=== PATIENT | male | born 1990 | race Caucasian/White ===

== ENCOUNTER 2019-06-21 22:11 | Inpatient (IN) | payer SELFPAY ==
[~2019-06-21] VITALS: Ht 167.6 cm; Wt 63.9 kg
[~2019-06-21 22:11] MED LIST: CEPH500C PO; HYDR1TAB PO; ONDA4TAB11 PO; PROP1TAB77 PO; SULF1TAB38 PO; TRAM50TA2 PO; tylenol #3
[2019-06-21] MEDS ORDERED: LACTATED RINGERS 1,000 ML IV ONE ×2 (22:25→23:33)
[2019-06-21] MEDS ORDERED: ONDANSETRON 4 MG/2 ML (SDV) Z0FRAN IV PRN (22:30)
[2019-06-21] MEDS ORDERED: ACETAMINOPHEN 500 MG TAB (TYLENOL) PO PRN (22:30)
[2019-06-21] MEDS ORDERED: IBUPROFEN 800 MG (MOTRIN) TAB PO ONE (22:30)
[2019-06-21 22:49] LABS: BASOPHILS % (AUTO) 0 % (0-10); EOSINOPHILS # (AUTO) 0.1 10^3/uL (0.0-0.3); EOSINOPHILS % (AUTO) 2 % (0-10); HEMATOCRIT 39 % (40-54); HEMOGLOBIN 13.4 G/DL (13.3-17.7); LYMPHOCYTES # (AUTO) 0.5 X 10^3 (1.0-4.0); LYMPHOCYTES % (AUTO) 7 % (12-44); MEAN CORPUSCULAR HEMOGLOBIN 30 PG (25-34); MEAN CORPUSCULAR HGB CONC 34 G/DL (32-36); MEAN CORPUSCULAR VOLUME 88 FL (80-99); MEAN PLATELET VOLUME 10.9 FL (7.4-10.4); MONOCYTES # (AUTO) 0.3 X 10^3 (0.0-1.0); MONOCYTES % (AUTO) 5 % (0-12); NEUTROPHILS # (AUTO) 6.3 X 10^3 (1.8-7.8); NEUTROPHILS % (AUTO) 86 % (42-75); PLATELET COUNT 203 10^3/uL (130-400); RED CELL DISTRIBUTION WIDTH 12.5 % (10.0-14.5); WHITE BLOOD COUNT 7.3 10^3/uL (4.3-11.0)
[2019-06-21 22:55] LABS: PROTHROMBIN TIME PATIENT 13.4 SEC (12.2-14.7)
[2019-06-21 23:05] LABS: ALANINE AMINOTRANSFERASE 31 U/L (0-55); ALBUMIN 3.5 GM/DL (3.2-4.5); ALKALINE PHOSPHATASE 81 U/L (40-136); AMYLASE 35 U/L (25-125); BILIRUBIN,TOTAL 0.6 MG/DL (0.1-1.0); BUN/CREATININE RATIO 10; CALCIUM 8.8 MG/DL (8.5-10.1); CARBON DIOXIDE 26 MMOL/L (21-32); CHLORIDE 96 MMOL/L (98-107); CREATININE SERUM 1.28 MG/DL (0.60-1.30); GFR ESTIMATED > 60; GLUCOSE 148 MG/DL (70-105); LIPASE 11 U/L (8-78); MAGNESIUM 1.8 MG/DL (1.6-2.4); POTASSIUM 3.2 MMOL/L (3.6-5.0); SODIUM 132 MMOL/L (135-145); TOTAL PROTEIN 6.6 GM/DL (6.4-8.2)
[2019-06-21 23:29] LABS: BAND NEUTROPHILS 1 %; EOSINOPHILS % (MANUAL) 1 %; LYMPHOCYTES % (MANUAL) 4 %; MONOCYTES % (MANUAL) 6 %; NEUTROPHILS % (MANUAL) 88 %; RBC MORPH NORMAL
[2019-06-21] MEDS ORDERED: AZITHROMYCIN INJECTION 500 MG in NS (IVPB) 250 ML IV ONE (23:30)
[2019-06-21] MEDS ORDERED: cefTRIAXone FOR IV USE 1,000 MG in WATER (STERILE) FOR INJECTION 10 ML IV ONE (23:30)
[2019-06-21] MEDS ORDERED: ONDANSETRON 4 MG (ZOFRAN) ORAL DISSOLVE TAB PO STA (23:42)
[2019-06-21 23:44] VITALS: BP 99/60
[2019-06-22] VITALS (16 sets, daily range): BP systolic 87–117; BP diastolic 53–73
[2019-06-22] MEDS ORDERED: NS IV 1000 ML 1,000 ML ONE (00:04)
[2019-06-22] MEDS ORDERED: NS IV 1000 ML 1,000 ML IV ONE ×2 (00:16→01:19)
[2019-06-22] MEDS ORDERED: methylPREDNISolone 125 MG (Solu-MEDROL) VIAL IVP ONE (00:30)
[2019-06-22] MEDS ORDERED: 1/2 NS W/KCL 20 MEQ/L 1,000 ML IV ONE (01:58)
[2019-06-22 02:04] LABS: BILIRUBIN,URINE NEGATIVE (NEGATIVE); CLARITY,URINE CLEAR; COLOR,URINE YELLOW; GLUCOSE, URINE (UA) NEGATIVE (NEGATIVE); KETONES,URINE NEGATIVE (NEGATIVE); LEUKOCYTE ESTERASE ,URINE NEGATIVE (NEGATIVE); NITRITE,URINE NEGATIVE (NEGATIVE); PH,URINE 6.5 (5-9); PROTEIN,URINE 2+ (NEGATIVE); UROBILINOGEN,URINE 4 MG/DL (NORMAL)
--- NOTE | 2019-06-22 02:12 | ED General ---
General Chief Complaint: Fever-Adult/Adol Stated Complaint: PNEUMONIA; SEPSIS Nursing Triage Note: Pt ambulates to [facility] 6 with C/O fever/chills, N/V, dizziness, and overall weakness x 3 days. Pt reports taking tylenol this am and did not help fever. Pt denies SOB at this time. Pt is A&O x 4. PT is weak/sluggish upon observation on arrival. Nursing Sepsis Screen: No Definite Risk Source of Information: Other (FEMALE S.O. DOES ALL TALKING--PT NOT WANTING TO TALK. ) History of Present Illness Date Seen by Provider: Jun 21, 2019 Time Seen by Provider: 22:20 Initial Comments PT ARRIVES VIA POV FROM HOME PT HAS BEEN SICK FOR THE LAST 3 DAYS C/O SUBJECTIVE FEVER--HAD 1 TYLENOL EARLY THIS AM. HAS NOT ANYTHING ELSE FOR SYMPTOMS . TEMP IS 103.8 NO ARRIVAL HERE C/O NAUSEA AND VOMITING--VOMITED X 2 TODAY NO DIARRHEA NO ABDOMINAL PAIN C/O BODY ACHES C/O HEADACHE C/O MILD NON-PRODUCTIVE COUGH AND CLEAR RUNNY NOSE NO CHEST PAIN OR SHORTNESS OF BREATH C/O GENERALIZED WEAKNESS AND DIZZINESS NO HISTORY OF SIMILAR DENIES ANY MEDICAL PROBLEMS PT DOES SMOKE 1 PPD NO SICK CONTACTS PCP: NONE Allergies and Home Medications Allergies Coded Allergies: NKANo Known Allergies (Unverified Allergy, Mild, 02/25/09) Home Medications Cephalexin Monohydrate 500 Mg Capsule, 1 EACH PO TID Prescribed by: ERWIN ALONZO on 07/17/13 230 Ondansetron 4 Mg Tab.rapdis, 4 MG PO Q6H PRN for NAUSEA/VOMITING Prescribed by: ROSA CRAFT on 02/03/15 0724 Tramadol Hcl 50 Mg Tablet, 50 MG PO Q4H PRN Prescribed by: ERWIN ALONZO on 07/17/13 230 Patient Home Medication List Home Medication List Reviewed: Yes Review of Systems Review of Systems Constitutional: see HPI, chills, diaphoresis, dizziness, fever, malaise, weakness EENTM: see HPI, nose congestion; No eye pain, No throat pain Respiratory: see HPI, cough; No phlegm, No short of breath, No wheezing Cardiovascular: no symptoms reported; No chest pain, No edema, No palpitations Gastrointestinal: see HPI; No abdominal pain, No diarrhea; loss of appetite, nausea, vomiting Genitourinary: decreased output Musculoskeletal: see HPI Skin: no symptoms reported; No rash Psychiatric/Neurological: See HPI, Headache; Denies Numbness, Denies Pares thesia, Denies Seizure, Denies Tingling Hematologic/Lymphatic: No Symptoms Reported Immunological/Allergic: no symptoms reported Past Twasfyr-Lqzkwb-Dwtcbc Hx Patient Social History Alcohol Use: Denies Use Recreational Drug Use: No Smoking Status: Current Everyday Smoker (1 PPD) Type Used: Cigarettes (1 PPD) Recent Foreign Travel: No Contact w/Someone Who Travel: No Recent Infectious Disease Expo: No Recent Hopitalizations: No Physical Abuse: No Sexual Abuse: No Mistreated: No Fear: No Immunizations Up To Date Tetanus Booster (TDap): More than 5yrs Seasonal Allergies Seasonal Allergies: No Past Medical History Surgeries: No Respiratory: No Cardiac: No Neurological: No Reproductive Disorders: No Sexually Transmitted Disease: No HIV/AIDS: No Genitourinary: No Gastrointestinal: No Musculoskeletal: No Endocrine: No HEENT: Yes (TEETH REMOVED) Cancer: No Psychosocial: No Integumentary: No Blood Disorders: No Adverse Reaction/Blood Tranf: No Physical Exam Vital Signs Vital Signs - First Documented 06/21/19 22:37 Temp 103.8 Pulse 102 Resp 18 B/P (MAP) 105/65 (78) Pulse Ox 97 O2 Delivery Room Air Capillary Refill : Less Than 3 Seconds Height, Weight, BMI Height: 5'6.00" Weight: 120lbs. oz. 54.219038nk; BMI Method:Stated General Appearance: No Apparent Distress, Thin, Other (VERY DRAMATIC, LETHARGIC, WON'T TALK--WANTS FEMALE S.O. TO TALK FOR HIM. DIRTY, REEKS OF CIGARETTES. PROFUSELY DIAPHORETIC BUT HEAVILY BUNDLED ON ARRIVAL) HEENT: PERRL/EOMI, TMs Normal, Normal ENT Inspection, Pharynx Normal, Other (EDENTULOUS. ORAL MUCOSA SLIGHTLY DRY) Neck: Full Range of Motion, Normal Inspection, Non Tender, Supple Respiratory: No Accessory Muscle Use, No Respiratory Distress, Rales, Rhonci; No Wheezing; Other (RALES AND RHONCHI IN RLL, FAINT RALES IN LLL. 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 Norm as Tested Skin: Diaphoresis, Pallor, Other (VERY WARM) Focused Exam Lactate Level 06/21/19 22:30: Lactic Acid Level 1.62 Lactic Acid Level Progress/Results/Core Measures Suspected Sepsis Recent Fever Within 48 Hours: Yes Infection Criteria Present: Suspected New Infection New/Unexplained Altered Menta: No Sepsis Screen: No Definite Risk SIRS Temperature:99.2 Pulse: 79 Respiratory Rate: 18 Laboratory Tests 06/21/19 22:30: White Blood Count 7.3 Blood Pressure 105 /70 Mean: 82 06/21/19 22:30: Lactic Acid Level 1.62 Laboratory Tests 06/21/19 22:30: Creatinine 1.28, INR Comment 1.0, Platelet Count 203, Total Bilirubin 0.6 Results/Orders Lab Results Laboratory Tests Test 06/21/19 22:30 06/21/19 22:56 06/22/19 01:45 Range/Units White Blood Count 7.3 4.3-11.0 10^3/uL Red Blood Count 4.49 4.35-5.85 10^6/uL Hemoglobin 13.4 13.3-17.7 G/DL Hematocrit 39 L 40-54 % Mean Corpuscular Volume 88 80-99 FL Mean Corpuscular Hemoglobin 30 25-34 PG Mean Corpuscular Hemoglobin Concent 34 32-36 G/DL Red Cell Distribution Width 12.5 10.0-14.5 % Platelet Count 203 130-400 10^3/uL Mean Platelet Volume 10.9 H 7.4-10.4 FL Neutrophils (%) (Auto) 86 H 42-75 % Lymphocytes (%) (Auto) 7 L 12-44 % Monocytes (%) (Auto) 5 0-12 % Eosinophils (%) (Auto) 2 0-10 % Basophils (%) (Auto) 0 0-10 % Neutrophils # (Auto) 6.3 1.8-7.8 X 10^3 Lymphocytes # (Auto) 0.5 L 1.0-4.0 X 10^3 Monocytes # (Auto) 0.3 0.0-1.0 X 10^3 Eosinophils # (Auto) 0.1 0.0-0.3 10^3/uL Basophils # (Auto) 0.0 0.0-0.1 10^3/uL Neutrophils % (Manual) 88 % Lymphocytes % (Manual) 4 % Monocytes % (Manual) 6 % Eosinophils % (Manual) 1 % Band Neutrophils 1 % Blood Morphology Comment NORMAL Prothrombin Time 13.4 12.2-14.7 SEC INR Comment 1.0 0.8-1.4 Activated Partial Thromboplast Time 33 24-35 SEC Sodium Level 132 L 135-145 MMOL/L Potassium Level 3.2 L 3.6-5.0 MMOL/L Chloride Level 96 L 98-107 MMOL/L Carbon Dioxide Level 26 21-32 MMOL/L Anion Gap 10 5-14 MMOL/L Blood Urea Nitrogen 13 7-18 MG/DL Creatinine 1.28 0.60-1.30 MG/DL Estimat Glomerular Filtration Rate > 60 BUN/Creatinine Ratio 10 Glucose Level 148 H 70-105 MG/DL Lactic Acid Level 1.62 0.50-2.00 MMOL/L Calcium Level 8.8 8.5-10.1 MG/DL Corrected Calcium 9.2 8.5-10.1 MG/DL Magnesium Level 1.8 1.6-2.4 MG/DL Total Bilirubin 0.6 0.1-1.0 MG/DL Aspartate Amino Transf (AST/SGOT) 31 5-34 U/L Alanine Aminotransferase (ALT/SGPT) 31 0-55 U/L Alkaline Phosphatase 81 40-136 U/L Total Protein 6.6 6.4-8.2 GM/DL Albumin 3.5 3.2-4.5 GM/DL Amylase Level 35 25-125 U/L Lipase 11 8-78 U/L Serum Alcohol < 10 <10 MG/DL Monoscreen NEGATIVE NEGATIVE Group A Streptococcus Screen NEGATIVE NEGATIVE Urine Color YELLOW Urine Clarity CLEAR Urine pH 6.5 5-9 Urine Specific Thornton 1.005 L 1.016-1.022 Urine Protein 2+ H NEGATIVE Urine Glucose (UA) NEGATIVE NEGATIVE Urine Ketones NEGATIVE NEGATIVE Urine Nitrite NEGATIVE NEGATIVE Urine Bilirubin NEGATIVE NEGATIVE Urine Urobilinogen 4 H NORMAL MG/DL Urine Leukocyte Esterase NEGATIVE NEGATIVE Urine RBC (Auto) NEGATIVE NEGATIVE Urine RBC NONE /HPF Urine WBC RARE /HPF Urine Squamous Epithelial Cells 0-2 /HPF Urine Crystals NONE /LPF Urine Bacteria TRACE /HPF Urine Casts NONE /LPF Urine Mucus NEGATIVE /LPF Urine Culture Indicated NO Urine Opiates Screen NEGATIVE NEGATIVE Urine Oxycodone Screen NEGATIVE NEGATIVE Urine Methadone Screen NEGATIVE NEGATIVE Urine Propoxyphene Screen NEGATIVE NEGATIVE Urine Barbiturates Screen NEGATIVE NEGATIVE Ur Tricyclic Antidepressants Screen NEGATIVE NEGATIVE Urine Phencyclidine Screen NEGATIVE NEGATIVE Urine Amphetamines Screen NEGATIVE NEGATIVE Urine Methamphetamines Screen NEGATIVE NEGATIVE Urine Benzodiazepines Screen NEGATIVE NEGATIVE Urine Cocaine Screen NEGATIVE NEGATIVE Urine Cannabinoids Screen NEGATIVE NEGATIVE Micro Results Microbiology 06/21/19 Influenza Types A,B Antigen ([facility]) - Final, Complete My Orders Orders - CICI ROBINS DO Influenza A And B Antigens (06/21/19 22:21) Cbc With Automated Diff (06/21/19 22:25) Comprehensive Metabolic Panel (06/21/19 22:25) Blood Culture (06/21/19 22:25) Sputum Culture (06/21/19 22:25) Urinalysis (06/21/19 22:25) Urine Culture (06/21/19 22:25) Protime With Inr (06/21/19 22:25) Partial Thromboplastin Time (06/21/19 22:25) Chest 1 View, Ap/Pa Only (06/21/19 22:25) Acetaminophen Tablet (Tylenol Tablet) (06/21/19 22:30) Ed Iv/Invasive Line Start (06/21/19 22:25) Ed Iv/Invasive Line Start (06/21/19 22:25) Ekg Tracing (06/21/19 22:25) Vital Signs Adult Sepsis Patie Q15M (06/21/19 22:25) Ondansetron Injection (Zofran Injectio (06/21/19 22:30) O2 (06/21/19 22:25) Remove Rings In Anticipation O (06/21/19 22:25) Lactic Acid Analyzer (06/21/19 22:25) Lactated Ringers (Lr 1000 Ml Iv Solution (06/21/19 22:25) Ibuprofen Tablet (Motrin Tablet) (06/21/19 22:30) Alcohol (06/21/19 22:25) Amylase (06/21/19 22:25) Drug Screen Stat (Urine) (06/21/19 22:25) Lipase (06/21/19 22:25) Magnesium (06/21/19 22:25) Monotest (06/21/19 22:47) Rapid Strep A Screen (06/21/19 22:47) Manual Differential (06/21/19 22:30) Ceftriaxone For Iv Use (Rocephin For I (06/21/19 23:30) Azithromycin Injection (Zithromax Inject (06/21/19 23:30) Ed Iv/Invasive Line Start (06/21/19 23:33) Lactated Ringers (Lr 1000 Ml Iv Solution (06/21/19 23:33) Ondansetron Oral Dissolve Tab (Zofran (06/21/19 23:42) Ns Iv 1000 Ml (Sodium Chloride 0.9%) (06/22/19 00:04) Ed Iv/Invasive Line Start (06/22/19 00:16) Ns Iv 1000 Ml (Sodium Chloride 0.9%) (06/22/19 00:16) Methylprednisolone Sod Succ (Solu-Medrol (06/22/19 00:30) Ed Iv/Invasive Line Start (06/22/19 01:19) Ns Iv 1000 Ml (Sodium Chloride 0.9%) (06/22/19 01:19) Medications Given in ED Current Medications Medications Dose Ordered Sig/Yovanny Route Start Time Stop Time Status Last Admin Dose Admin Acetaminophen 1,000 mg ONCE PRN PO 06/21/19 22:30 06/21/19 22:45 DC 06/21/19 22:45 1,000 MG Azithromycin 500 mg/Sodium Chloride 250 ml @ 250 mls/hr ONCE ONCE IV 06/21/19 23:30 06/22/19 00:29 DC 06/21/19 23:41 250 MLS/HR Ceftriaxone Sodium 1000 mg/ Sterile Water 10 ml @ 200 mls/hr ONCE ONCE IV 06/21/19 23:30 06/21/19 23:32 DC 06/21/19 23:41 200 MLS/HR Ibuprofen 800 mg ONCE ONCE PO 06/21/19 22:30 06/21/19 22:31 DC 06/21/19 22:45 800 MG Lactated Ringer's 1,000 ml @ 0 mls/hr Q0M ONCE IV 06/21/19 22:25 06/21/19 22:29 DC 06/21/19 22:44 0 MLS/HR Lactated Ringer's 1,000 ml @ 0 mls/hr Q0M ONCE IV 06/21/19 23:33 06/21/19 23:34 DC 06/21/19 23:50 0 MLS/HR Ondansetron HCl 4 mg PRN PRN IV 06/21/19 22:30 06/21/19 22:45 DC 06/21/19 22:45 4 MG Sodium Chloride 1,000 ml @ ud STK-MED ONCE .ROUTE 06/22/19 00:04 06/22/19 00:14 DC 06/22/19 00:16 0 MLS/HR Vital Signs/I&O 06/21/19 06/21/19 06/21/19 06/22/19 22:37 23:00 23:44 01:57 Temp 103.8 101.0 99.2 Pulse 102 99 79 Resp 18 12 18 B/P (MAP) 105/65 (78) 99/60 (73) 105/70 (82) Pulse Ox 97 96 97 O2 Delivery Room Air Room Air Room Air 06/22/19 00:00 Intake Total 1010 ml Balance 1010 ml Capillary Refill : Less Than 3 Seconds Blood Pressure Mean: 82 Progress Note : Progress Note TEMP DOWN WITH TYLENOL AND MOTRIN PT HAD PERSISTENT HYPOTENSION--GIVEN 4 LITERS OF FLUIDS, AND BP UP TO >100 SYSTOLIC AT TIME OF ADMIT. PT VOIDED APPROXIMATELY 20 ML AFTER 3 LITERS OF FLUIDS. URINE IS MEDIUM YELLOW IN COLOR--NOT DARK. ECG Initial ECG Impression Date: Jun 21, 2019 Initial ECG Impression Time: 22:59 Initial ECG Rate: 95 Initial ECG Rhythm: Normal Sinus Initial ECG Impression: Nonspecific Changes (DIFFSE FLATTENED T WAVES) Diagnostic Imaging Comments CXR--RLL INFILTRATE, PENDING RADIOLOGIST REVIEW Reviewed: Reviewed by Me Departure Communication (Admissions) 0002--SPOKE WITH DR. TEJEDA, HOSPITALIST, ACCEPTS PT FOR ADMIT 0040--SPOKE WITH DR. TEJEDA AGAIN, AND UPDATED HER ON PT'S CONDITION --WILL BE ADMITTING TO ICU DUE TO PERSISTENT HYPOTENSION, AND ANTICIPATE CENTRAL LINE PLACEMENT AND PRESSORS IF BP DOES NOT IMPROVE. SHE AGREES WITH PLAN OF CARE Impression Primary Impression: Severe sepsis Additional Impressions: RLL pneumonia Electrolyte imbalance Dehydration Disposition: ADMITTED INPATIENT Condition: Improved Admissions Decision to Admit Reason: Admit from ER (General) Decision to Admit/Date: Jun 22, 2019 Time/Decision to Admit Time: 00:05 Departure-Patient Inst. Referrals: NO,LOCAL PHYSICIAN (PCP) Primary Care Physician CICI ROBINS DO Jun 22, 2019 02:12
[2019-06-22 02:35] LABS: AMPHETAMINE SCREEN, URINE NEGATIVE (NEGATIVE); BACTERIA,URINE TRACE /HPF; BARBITURATE SCREEN URINE NEGATIVE (NEGATIVE); BENZODIAZEPINES SCREEN URINE NEGATIVE (NEGATIVE); CANNABINOID SCREEN, URINE NEGATIVE (NEGATIVE); COCAINE SCREEN URINE NEGATIVE (NEGATIVE); METHADONE STAT NEGATIVE (NEGATIVE); METHAMPHETAMINE SCREEN URINE S NEGATIVE (NEGATIVE); OPIATE SCREEN URINE NEGATIVE (NEGATIVE); OXYCODONE STAT NEGATIVE (NEGATIVE); PROPOXYPHENE STAT NEGATIVE (NEGATIVE); SQUAMOUS EPITHELIAL CELL,UR 0-2 /HPF; TRICYCLIC ANTIDEPRESSANTS SCRE NEGATIVE (NEGATIVE); WBC,URINE RARE /HPF
[2019-06-22 04:00] LABS: BASOPHILS % (AUTO) 0 % (0-10); EOSINOPHILS % (AUTO) 0 % (0-10); HEMATOCRIT 37 % (40-54); HEMOGLOBIN 12.6 G/DL (13.3-17.7); LYMPHOCYTES # (AUTO) 0.4 X 10^3 (1.0-4.0); LYMPHOCYTES % (AUTO) 5 % (12-44); MEAN CORPUSCULAR HEMOGLOBIN 30 PG (25-34); MEAN CORPUSCULAR HGB CONC 34 G/DL (32-36); MEAN CORPUSCULAR VOLUME 88 FL (80-99); MEAN PLATELET VOLUME 11.1 FL (7.4-10.4); MONOCYTES # (AUTO) 0.3 X 10^3 (0.0-1.0); MONOCYTES % (AUTO) 4 % (0-12); NEUTROPHILS # (AUTO) 6.5 X 10^3 (1.8-7.8); NEUTROPHILS % (AUTO) 91 % (42-75); PLATELET COUNT 173 10^3/uL (130-400); RED CELL DISTRIBUTION WIDTH 12.4 % (10.0-14.5); WHITE BLOOD COUNT 7.2 10^3/uL (4.3-11.0)
[2019-06-22] MEDS ORDERED: D5 1/2 NS W/KCL 20 MEQ/L 1,000 ML IV SCH (04:00)
[2019-06-22] MEDS ORDERED: NOREPINEPHRINE 4 MG in NS (IVPB) 250 ML IV SCH (04:02)
[2019-06-22] MEDS ORDERED: NS IV 1000 ML 1,000 ML IV SCH (04:02)
[2019-06-22] MEDS ORDERED: VASOPRESSIN INJECTION 20 UNIT in NS (IVPB) 100 ML IV SCH (04:02)
[2019-06-22] MEDS ORDERED: ACETAMINOPHEN 500 MG TAB (TYLENOL) PO PRN (04:15)
[2019-06-22] MEDS ORDERED: IBUPROFEN 800 MG (MOTRIN) TAB PO PRN (04:15)
[2019-06-22] MEDS ORDERED: ONDANSETRON 4 MG/2 ML (SDV) Z0FRAN IV PRN (04:15)
[2019-06-22] MEDS ORDERED: NS IV ONE (04:15)
[2019-06-22 04:26] LABS: ALANINE AMINOTRANSFERASE 27 U/L (0-55); ALKALINE PHOSPHATASE 76 U/L (40-136); BILIRUBIN,TOTAL 0.6 MG/DL (0.1-1.0); BUN/CREATININE RATIO 11; CARBON DIOXIDE 22 MMOL/L (21-32); CHLORIDE 107 MMOL/L (98-107); CREATININE SERUM 0.99 MG/DL (0.60-1.30); GFR ESTIMATED > 60; GLUCOSE 162 MG/DL (70-105); MAGNESIUM 1.6 MG/DL (1.6-2.4); POTASSIUM 3.6 MMOL/L (3.6-5.0); SODIUM 139 MMOL/L (135-145); TOTAL PROTEIN 5.5 GM/DL (6.4-8.2)
[2019-06-22] MEDS ORDERED: LACTATED RINGERS 1,000 ML IV ONE ×2 (05:04→05:55)
[2019-06-22] MEDS ORDERED: LACTATED RINGERS 1,000 ML IV SCH (05:30)
--- NOTE | 2019-06-22 05:34 | Pulmonary Consultation ---
History of Present Illness History of Present Illness Date of Consultation 06/22/19 05:28 Time Seen by Provider: 05:28 Date of Admission History of Present Illness 29 yo presented to ED after 3 days of severe sharp 9/10 global [place], F/chills, N/V, dizziness and overall weakness. PT has had decreased appetite. No MS changes. He does complains of stiff neck however no neck rigidity noted on exam. No sick contacts. No SOB, no coughing. No rash. smokes 1 pk/day. No prior symptoms. I am consulted for ICU management. Allergies and Home Medications Allergies Coded Allergies: NKANo Known Allergies (Unverified Allergy, Mild, 02/25/09) Home Medications Cephalexin Monohydrate 500 Mg Capsule, 1 EACH PO TID Prescribed by: ERWIN ALONZO on 07/17/132303 Ondansetron 4 Mg Tab.rapdis, 4 MG PO Q6H PRN for NAUSEA/VOMITING Prescribed by: ROSA CRAFT on 02/03/15 0724 Tramadol Hcl 50 Mg Tablet, 50 MG PO Q4H PRN Prescribed by: ERWIN ALONZO on 07/17/13 230 Past Nicpwxj-Ivukld-Gasmog Hx Patient Social History Alcohol Use: Denies Use Number of Drinks Today: 0 Recreational Drug Use: No Smoking Status: Current Everyday Smoker (1 PPD) Type Used: Cigarettes (1 PPD) Recent Foreign Travel: No Contact w/Someone Who Travel: No Recent Infectious Disease Expo: No Recent Hopitalizations: No Physical Abuse: No Sexual Abuse: No Mistreated: No Fear: No Immunizations Up To Date Tetanus Booster (TDap): More than 5yrs PED Vaccines UTD: No Seasonal Allergies Seasonal Allergies: No Past Medical History Surgeries: Yes (Dentures) Respiratory: No Cardiac: No Neurological: No Reproductive Disorders: No Sexually Transmitted Disease: No HIV/AIDS: No Genitourinary: No Gastrointestinal: No Musculoskeletal: No Endocrine: No HEENT: Yes (TEETH REMOVED) Cancer: No Psychosocial: No Integumentary: No Blood Disorders: No Adverse Reaction/Blood Tranf: No Family Medical History Congenital heart disease Review of Systems Time Seen by Provider: 05:39 Constitutional: Fever, Chills, Sweats, Weakness, Malaise, Other Eyes: No: Pain, Vision change, Conjunctivae inflammation, Eyelid inflammation, Other, Redness ENT: Nose congestion; No: Ear pain, Ear discharge, Nose pain, Nose discharge, Mouth pain, Mouth swelling, Throat pain, Throat swelling, Other Respiratory: No: Cough, Dry, Shortness of breath, SOB with excertion, Wheezing, Hemoptysis, Pleuritic Pain, Sputum, Wheezing, Other Cardiovascular: No: Chest Pain, Palpitations, Orthopnea, Paroxysmal Noc. Dyspnea, Edema, Lt Headedness, Other Gastrointestinal: Nausea, Vomiting; No: Abdominal Pain, Diarrhea, Constipation, Melena, Hematochezia, Other Sepsis Event Evaluation Height, Weight, BMI Height: 5'6.00" Weight: 135lbs. 6.0oz. 61.740933xs; 21.9 BMI Method:Stated Exam Exam Vital Signs Date Time Temp Pulse Resp B/P (MAP) Pulse Ox O2 Delivery O2 Flow Rate FiO2 06/22/19 04:33 96.8 06/22/19 04:08 95 Room Air 06/22/19 03:49 75 06/22/19 03:30 98.5 06/22/19 01:57 99.2 79 18 105/70 (82) 97 Room Air 06/21/19 23:44 101.0 99 12 99/60 (73) 96 Room Air 06/21/19 23:00 06/21/19 22:37 103.8 102 18 105/65 (78) 97 Room Air I & O 06/22/19 07:00 Intake Total 3260 ml Balance 3260 ml Height & Weight Height: 5'6.00" Weight: 135lbs. 6.0oz. 61.337029aq; 21.9 BMI Method:Stated General Appearance: No Apparent Distress, Thin, Other (VERY DRAMATIC, LETHARGIC, WON'T TALK--WANTS FEMALE S.O. TO TALK FOR HIM. DIRTY, REEKS OF CIGARETTES. PROFUSELY DIAPHORETIC BUT HEAVILY BUNDLED ON ARRIVAL) HEENT: PERRL/EOMI, TMs Normal, Normal ENT Inspection, Pharynx Normal, Other (EDENTULOUS. ORAL MUCOSA SLIGHTLY DRY) Neck: Full Range of Motion, Normal Inspection, Non Tender, Supple Respiratory: No Accessory Muscle Use, No Respiratory Distress, Rales, Rhonci; No Wheezing; Other (RALES AND RHONCHI IN RLL, FAINT RALES IN LLL. 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
[2019-06-22] MEDS ORDERED: POTASSIUM PHOSPHATE INJ 30 MM in NS (IVPB) 250 ML IV ONE (05:45)
[2019-06-22] MEDS ORDERED: MAGNESIUM 1 GM/100 ML IVPB 200 ML IV ONE (05:55)
[2019-06-22] MEDS ORDERED: methylPREDNISolone 125 MG (Solu-MEDROL) VIAL IV ONE (06:00)
[2019-06-22] MEDS: MAGNESIUM 1 GM/100 ML IVPB 100 ML IV SCH ×2 (06:27→07:27)
[2019-06-22] MEDS: LACTATED RINGERS 1,000 ML IV SCH ×4 (06:27→23:29)
--- NOTE | 2019-06-22 07:14 | Diagnostic Imaging Report ---
INDICATION: Cough, congestion, and fever. FINDINGS: The heart size, mediastinal configuration, and pulmonary vascularity are within normal limits. There is no pleural effusion, pneumothorax, or pneumonia. The osseous structures are unremarkable. IMPRESSION: No acute cardiopulmonary abnormality. Dictated by: Dictated on workstation # [id number]
[2019-06-22] MEDS: NS IV 1000 ML 1,000 ML IV SCH ×3 (07:24→10:54)
[2019-06-22] MEDS: AZITHROMYCIN 500 MG/NS 250 ML IVPB IV SCH ×2 (07:25)
[2019-06-22] MEDS ORDERED: RT-ALBUTEROL/IPRATROPIUM 3 ML (DUONEB) VIAL INH PRN (08:45)
--- NOTE | 2019-06-22 08:47 | History & Physical-Hospitalist ---
History of Present Illness HPI/Chief Complaint Patient is a 29-year-old male with no known past medical history who presented to the emergency department with a 4 day history of fevers and headache and myalgias. He reports that he thought that he had a cold but then developed vomiting and was unable to keep anything down. His symptoms continued to worsen prompting him to seek evaluation in the ER. He was found to have a fever of 103 and was mildly hypotensive (though has no history of hypertension). CXR revealed possible infiltrate and he was admitted to the ICU for IV abx. This morning he reports that he is feeling slightly better but still does not feel well. Voice is hoarse from vomiting but otherwise has no new complaints. Source: patient Date Seen 06/22/19 Time Seen by a Provider: 08:47 Attending Physician Eulalia Busch MD PCP No,Local Physician Referring Physician Date of Admission Jun 22, 2019 at 00:05 Home Medications & Allergies Home Medications Reviewed patient Home Medication Reconciliation performed by pharmacy medication reconciliations plasma center technician and/or nursing. Patients Allergies have been reviewed. Allergies Allergies Coded Allergies NKANo Known Allergies (Unverified Allergy, Mild, 02/25/09) Past Igadqzz-Aedgpi-Qmrclf Hx Past Med/Social Hx: Reviewed Nursing Past Med/Soc Hx Patient Social History Alcohol Use: Denies Use Number of Drinks Today: 0 Recreational Drug Use: No Smoking Status: Current Everyday Smoker (1 PPD) Type Used: Cigarettes (1 PPD) Physical Abuse Screen: No Sexual Abuse: No Recent Foreign Travel: No Contact w/other who traveled: No Recent Hopitalizations: No Recent Infectious Disease Expo: No Immunizations Up To Date Tetanus Booster (TDap): More than 5yrs Pediatric: No Seasonal Allergies Seasonal Allergies: No Past Medical History Reproductive: No Sexually Transmitted Disease: No HIV/AIDS: No History of Blood Disorders: No Adverse Reaction to Blood Brown: No Family History Reviewed Nursing Family Hx Congenital heart disease Review of Systems Constitutional: chills, fever, malaise, weakness EENTM: No blurred vision, No double vision Respiratory: No cough, No short of breath Cardiovascular: No chest pain Gastrointestinal: no symptoms reported Genitourinary: no symptoms reported Musculoskeletal: see HPI Skin: no symptoms reported Psychiatric/Neurological: No Symptoms Reported Physical Exam Physical Exam Vital Signs Vital Signs - First Documented 06/21/19 22:37 Temp 103.8 Pulse 102 Resp 18 B/P (MAP) 105/65 (78) Pulse Ox 97 O2 Delivery Room Air Capillary Refill : Less Than 3 Seconds Height, Weight, BMI Height: 5'6.00" Weight: 135lbs. 6.0oz. 61.330649gq; 21.9 BMI Method:Stated General Appearance: No Apparent Distress, WD/WN HEENT: Moist Mucous Membranes; No Scleral Icterus (L), No Scleral Icterus (R) Neck: Normal Inspection, Non Tender, Supple Respiratory: Lungs Clear, No Accessory Muscle Use, No Respiratory Distress Cardiovascular: Regular Rate, Rhythm, No Murmur Gastrointestinal: Normal Bowel Sounds, Non Tender, Soft Extremity: No Calf Tenderness, No Pedal Edema Neurologic/Psychiatric: Alert, Oriented x3, Normal Mood/Affect; No Aphasia, No Facial Droop Skin: Normal Color, Warm/Dry; No Rash Results Results/Procedures Labs Laboratory Tests 06/21/19 22:30 06/22/19 03:38 Patient resulted labs reviewed. Imaging: Reviewed Imaging Report Assessment/Plan Admission Diagnosis Severe Sepsis Admission Status: Inpatient Order (span 2 midnights) Reason for Inpatient Admission: IV abx Assessment and Plan Severe Sepsis ?RLL Pneumonia Continue IV abx Await cultures Was hypotension on arrival but likely due to hypovolemia Repeat CXR this am RVP ordered as symptoms consistent with viral etiology Nausea and Vomiting Continue Zofran TROY Now resolved Continue IVF Hypovolemia Continue IVF resuscitation BP improving Hypokalemia Resolved Diagnosis/Problems Diagnosis/Problems (1) Dehydration Status: Acute (2) Severe sepsis Status: Acute (3) Nausea and vomiting Status: Acute (4) Electrolyte imbalance Status: Acute (5) RLL pneumonia Status: Acute Clinical Quality Measures DVT/VTE Risk/Contraindication: Risk Factor Score Per Nursin RFS Level Per Nursing on Admit: 1=Low/No VTE PPX EULALIA BUSCH MD Jun 22, 2019 08:47
--- NOTE | 2019-06-22 11:30 | NUR ---
Report received from Deanne IBARRA. Patient sitting in chair in room, with family at bedside. Call light within reach. Patient denies any pain or discomfort at this time. Will assume care of patient at this time.
--- NOTE | 2019-06-22 11:40 | NUR ---
1130 PT TRANSFERRED TO ROOM 406 VIA W/C ACCOMPANIED BY SO AND MARCI RN, ALL PERSONAL BELONGS SENT WITH PT. REPORT GIVEN TO MUMTAZ IBARRA.
--- NOTE | 2019-06-22 14:50 | Diagnostic Imaging Report ---
EXAMINATION: Chest radiograph, portable AP view. DATE: June 22, 2019 at 0914 hours. INDICATION: 29-year-old male, shortness of breath, pneumonia. COMPARISON: June 21, 2019. FINDINGS: Heart size and mediastinal contours are unremarkable. There is no identified pneumothorax. There is no large pleural effusion. There is no identified focal airspace consolidation. IMPRESSION: No identified acute cardiopulmonary abnormality. Dictated by: Dictated on workstation # [id number]
[2019-06-22] MEDS ORDERED: cefTRIAXone 1,000 MG/SWFI 10 ML IV PUSH IV SCH ×2 (21:00)
[2019-06-22] MEDS ORDERED: cefTRIAXone 1,000 MG IV (ROCEPHIN) VIAL ONE (22:02)
[2019-06-22] MEDS ORDERED: WATER (STERILE) FOR INJECTION 10 ML ONE (22:03)
[2019-06-23 00:33] VITALS: BP 99/66
[2019-06-23] MEDS ORDERED: AZITHROMYCIN 500 MG (ZITHROMAX) VIAL ONE (04:12)
[2019-06-23] MEDS ORDERED: NS (IVPB) 0 ML ONE (04:13)
[2019-06-23] MEDS ORDERED: NS (IVPB) 250 ML ONE (04:19)
[2019-06-23] MEDS: AZITHROMYCIN 500 MG/NS 250 ML IVPB IV SCH ×2 (04:39)
[2019-06-23] MEDS: LACTATED RINGERS 1,000 ML IV SCH (04:39)
[2019-06-23 04:55] VITALS: BP 113/70
[2019-06-23 06:37] LABS: BASOPHILS % (AUTO) 0 % (0-10); EOSINOPHILS % (AUTO) 0 % (0-10); HEMATOCRIT 35 % (40-54); HEMOGLOBIN 11.5 G/DL (13.3-17.7); LYMPHOCYTES % (AUTO) 12 % (12-44); MEAN CORPUSCULAR HGB CONC 33 G/DL (32-36); MEAN CORPUSCULAR VOLUME 89 FL (80-99); MONOCYTES # (AUTO) 0.8 X 10^3 (0.0-1.0); MONOCYTES % (AUTO) 9 % (0-12); NEUTROPHILS # (AUTO) 6.7 X 10^3 (1.8-7.8); NEUTROPHILS % (AUTO) 79 % (42-75); PLATELET COUNT 201 10^3/uL (130-400); RED CELL DISTRIBUTION WIDTH 12.9 % (10.0-14.5); WHITE BLOOD COUNT 8.5 10^3/uL (4.3-11.0)
[2019-06-23 06:42] LABS: MEAN CORPUSCULAR HEMOGLOBIN 29 PG (25-34)
--- NOTE | 2019-06-23 06:44 | Pulmonary Progress Note ---
Sepsis Event Evaluation Height, Weight, BMI Height: 5'6.00" Weight: 140lbs. 12.8oz. 63.578998fs; 21.9 BMI Method:Stated Focused Exam Lactate Level 06/21/19 22:30: Lactic Acid Level 1.62 Exam Exam Vital Signs Date Time Temp Pulse Resp B/P (MAP) Pulse Ox O2 Delivery O2 Flow Rate FiO2 06/23/19 04:55 98.0 68 16 113/70 (84) 97 Room Air 06/23/19 00:33 97.4 54 18 99/66 (77) 96 Room Air 06/22/19 21:50 Room Air 06/22/19 20:59 97.7 60 16 115/61 (79) 96 Room Air 06/22/19 18:09 Room Air 06/22/19 16:59 98.8 74 16 117/70 (86) 96 Room Air 06/22/19 11:00 77 24 115/73 (87) 96 Room Air 06/22/19 10:00 71 23 109/73 (85) 96 Room Air 06/22/19 09:00 65 23 104/73 (83) 96 Room Air 06/22/19 08:20 95 Room Air 06/22/19 08:10 97 Room Air 06/22/19 08:10 64 97 06/22/19 08:00 67 9 104/66 (79) 95 Room Air 06/22/19 07:00 71 17 93/58 (70) 95 Room Air 06/22/19 07:00 73 I & O 06/23/19 06:59 Intake Total 6690 ml Output Total 900 ml Balance 5790 ml Height & Weight Height: 5'6.00" Weight: 140lbs. 12.8oz. [id number]; 21.9 BMI Method:Stated General Appearance: No Apparent Distress, WD/WN HEENT: Moist Mucous Membranes; No Scleral Icterus (L), No Scleral Icterus (R) Neck: Normal Inspection, Non Tender, Supple Respiratory: Lungs Clear, No Accessory Muscle Use, No Respiratory Distress Cardiovascular: Regular Rate, Rhythm, No Murmur Capillary Refill: Less Than 3 Seconds Extremity: No Calf Tenderness, No Pedal Edema Neurologic/Psychiatric: Alert, Oriented x3, Normal Mood/Affect; No Aphasia, No Facial Droop Skin: Normal Color, Warm/Dry; No Rash Results Lab Laboratory Tests 06/21/19 22:30 06/22/19 03:38 Assessment/Plan Assessment/Plan Severe sepsis secondary to viral etiology -- Doubt PNA -Check RVP -Bradley cultured -UA neg, Tamiflu is neg Dehydration- improving -IVF ZEHRA ROSARIO DO Jun 23, 2019 06:44
[2019-06-23 06:58] LABS: BUN/CREATININE RATIO 13; CALCIUM 8.6 MG/DL (8.5-10.1); CARBON DIOXIDE 26 MMOL/L (21-32); CHLORIDE 108 MMOL/L (98-107); CREATININE SERUM 0.84 MG/DL (0.60-1.30); GFR ESTIMATED > 60; GLUCOSE 125 MG/DL (70-105); POTASSIUM 4.1 MMOL/L (3.6-5.0); SODIUM 142 MMOL/L (135-145)
[2019-06-23 08:00] VITALS: BP 114/73
--- NOTE | 2019-06-23 10:46 | Discharge Inst-Simple/Standard ---
Discharge Inst-Standard Patient Instructions/Follow Up Plan of Care/Instructions/FU: Take medications as prescribed. Follow up with PCP in about a week. Activity as Tolerated: Yes Discharge Diet: No Restrictions Return to The Hospital For: fever, shortness of breath, or if you feel like you are getting worse TAMIA ZHANG MD Jun 23, 2019 10:46
[2019-06-23 11:20] VITALS: BP 114/73
--- NOTE | 2019-06-23 12:43 | Discharge Summary ---
Diagnosis/Chief Complaint Date of Admission Jun 22, 2019 at 00:05 Date of Discharge Admission Diagnosis Severe Sepsis Primary Care No,Local Physician Discharge Diagnosis Viral sepsis (1) Viral sepsis Status: Acute (2) Dehydration Status: Acute (3) Nausea and vomiting Status: Acute (4) Electrolyte imbalance Status: Acute Discharge Summary Discharge Physical Exam Allergies: Coded Allergies: NKANo Known Allergies (Unverified Allergy, Mild, 02/25/09) Vitals & I&Os Vital Signs Date Time Temp Pulse Resp B/P (MAP) Pulse Ox O2 Delivery O2 Flow Rate FiO2 06/23/19 08:00 97.0 58 18 114/73 (87) 97 Room Air General Appearance: No Apparent Distress, WD/WN HEENT: PERRL/EOMI, Pharynx Normal Respiratory: Lungs Clear, Normal Breath Sounds, No Respiratory Distress Cardiovascular: Regular Rate, Rhythm, No Edema, No Murmur Gastrointestinal: Normal Bowel Sounds, Non Tender, Soft Extremity: Normal Inspection, Non Tender, No Pedal Edema Skin: Normal Color, Warm/Dry Neurologic/Psychiatric: Alert, Oriented x3 Hospital Course Was the Problem List Reviewed?: Yes Kapil Hwang is a 29-year-old male who presented with fever and myalgias and was treated for viral sepsis. Upon presentation, he was found to be septic. The workup revealed no bacterial source for his infection. He was initially treated with antibiotics, but these were discontinued. He was treated with supportive cares and discharged home. Labs (last 24 hrs) Laboratory Tests 06/23/19 05:37: White Blood Count 8.5, Red Blood Count 3.90L, Hemoglobin 11.5L, Hematocrit 35L, Mean Corpuscular Volume 89, Mean Corpuscular Hemoglobin 29, Mean Corpuscular Hemoglobin Concent 33, Red Cell Distribution Width 12.9, Platelet Count 201, Mean Platelet Volume 12.0H, Neutrophils (%) (Auto) 79H, Lymphocytes (%) (Auto) 12, Monocytes (%) (Auto) 9, Eosinophils (%) (Auto) 0, Basophils (%) (Auto) 0, Neutrophils # (Auto) 6.7, Lymphocytes # (Auto) 1.0, Monocytes # (Auto) 0.8, Eosinophils # (Auto) 0.0, Basophils # (Auto) 0.0, Sodium Level 142, Potassium Level 4.1, Chloride Level 108H, Carbon Dioxide Level 26, Anion Gap 8, Blood Urea Nitrogen 11, Creatinine 0.84, Estimat Glomerular Filtration Rate > 60, BUN/Creatinine Ratio 13, Glucose Level 125H, Calcium Level 8.6 Microbiology 06/21/19 Blood Culture - Preliminary, Resulted Probable Bacillus Species 06/22/19 MRSA Screen - Final, Complete MRSA not isolated 06/22/19 Urine Culture - Final, Complete NO GROWTH Patient resulted labs reviewed. Pending Labs Laboratory Tests 06/23/19 05:37: White Blood Count 8.5, Red Blood Count 3.90, Hemoglobin 11.5, Hematocrit 35, Mean Corpuscular Volume 89, Mean Corpuscular Hemoglobin 29, Mean Corpuscular Hemoglobin Concent 33, Red Cell Distribution Width 12.9, Platelet Count 201, Mean Platelet Volume 12.0, Neutrophils (%) (Auto) 79, Lymphocytes (%) (Auto) 12, Monocytes (%) (Auto) 9, Eosinophils (%) (Auto) 0, Basophils (%) (Auto) 0, Neutrophils # (Auto) 6.7, Lymphocytes # (Auto) 1.0, Monocytes # (Auto) 0.8, Eosinophils # (Auto) 0.0, Basophils # (Auto) 0.0, Sodium Level 142, Potassium Level 4.1, Chloride Level 108, Carbon Dioxide Level 26, Anion Gap 8, Blood Urea Nitrogen 11, Creatinine 0.84, Estimat Glomerular Filtration Rate > 60, BUN/Creatinine Ratio 13, Glucose Level 125, Calcium Level 8.6 Imaging: Reviewed Imaging Report Discussion & Recommendations Discharge Planning: <30 minutes discharge planning Discharge Home Medications: Active Scripts Active Ondansetron Odt (Ondansetron) 4 Mg Tab.rapdis 4 Mg PO Q6H PRN Tramadol Hcl 50 Mg Tablet 50 Mg PO Q4H PRN Condition at discharge Stable Instructions to patient/family Please see electronic discharge instructions given to patient. Clinical Quality Measures DVT/VTE Risk/Contraindication: Risk Factor Score Per Nursin RFS Level Per Nursing on Admit: 1=Low/No VTE PPX TAMIA ZHANG MD Jun 23, 2019 12:43
== END 2019-06-23 11:25 | disposition home or self-care (01) | DRG 872 ==
LOC: EDUNIT# 22:11 → ER 22:12 → ICU 06-22 00:05 → 4TH 06-22 11:32
PROVIDERS: ADMIT Family Medicine; ATTEND Family Medicine
DX: A41.89 Other specified sepsis (principal); B97.89 Other viral agents as the cause of diseases classified elsewhere; E86.1 Hypovolemia; E86.0 Dehydration; E87.6 Hypokalemia; N17.9 Acute kidney failure, unspecified; F17.210 Nicotine dependence, cigarettes, uncomplicated
CPT/HCPCS: 36415; 71045; 80048; 80053; 80306; 80320; 81000; 82150; 83605; 83690; 83735; 84100; 85007; 85025; 85027; 85610; 85730; 86308; 87040; 87081; 87088; 87430; 87804; 93005; 96361; 96365; 96375; 96376

== ENCOUNTER 2022-07-15 00:28 | Emergency (ER) | payer SELFPAY ==
[~2022-07-15] VITALS: Ht 165 cm; Wt 65.0 kg
--- NOTE | 2022-07-15 00:43 | ED Syncope ---
General Chief Complaint: Abdominal/GI Problems Stated Complaint: N/V,LOSS OF CONSCIOUSNESS History of Present Illness Date Seen by Provider: Jul 15, 2022 Time Seen by Provider: 00:23 Initial Comments Patient to the ER by private conveyance with his friends and chief complaint that he was at the club and had a couple shots and is now passing out having a hard time staying awake. He cannot quantify how much she had to drink but he says he was drinking earlier today when he was helped setting up a levi at the [employer] [place]. The club he is referring to was the local [employer]. Patient states he uses his nicotine vaporizer but denies using any recreational drugs. He denies a history of diabetes, heart disease, pain. He is having some nausea with a little bit of retching. Allergies and Home Medications Allergies Coded Allergies: Emigdio Known Allergies (Unverified Allergy, Mild, 02/25/09) Patient Home Medication List Home Medication List Reviewed: Yes Ondansetron (Ondansetron Odt) 4 Mg Tab.rapdis, 4 MG PO Q6H PRN for NAUSEA/VOMITING Prescribed by: JESE RAMIREZ on 07/15/22 0222 Discontinued Medications Ondansetron (Ondansetron Odt) 4 Mg Tab.rapdis, 4 MG PO Q6H PRN for NAUSEA/VOMITING Discontinued Reason: No Longer Taking Prescribed by: ROSA CRAFT on 02/03/15 0724 Last Action: Discontinued Tramadol Hcl (Tramadol Hcl) 50 Mg Tablet, 50 MG PO Q4H PRN Discontinued Reason: No Longer Taking Prescribed by: ERWIN ALONZO on 07/17/13 2304 Last Action: Discontinued Review of Systems Constitutional: No chills, No diaphoresis EENTM: No ear discharge, No ear pain Respiratory: No cough, No short of breath Cardiovascular: No chest pain, No edema Gastrointestinal: No abdominal pain, No constipation, No diarrhea; nausea, vomiting Genitourinary: No discharge, No dysuria Musculoskeletal: No back pain, No joint pain All Other Systems Reviewed Negative Unless Noted: Yes Past Trpupem-Xryarw-Rjhxxc Hx Patient Social History Tobacco Use?: Yes Substance use?: No Alcohol Use?: Yes Pt feels they are or have been: No Immunizations Up To Date Tetanus Booster (TDap): More than 5yrs PED Vaccines UTD: No First/Initial COVID19 Vaccinat: NA Seasonal Allergies Seasonal Allergies: No Past Medical History Surgery/Hospitalization HX: DENTAL Surgeries: Yes (Dentures) Respiratory: No Cardiac: No Neurological: No Reproductive Disorders: No Sexually Transmitted Disease: No HIV/AIDS: No Genitourinary: No Gastrointestinal: No Musculoskeletal: No Endocrine: No HEENT: Yes (TEETH REMOVED) Cancer: No Psychosocial: No Integumentary: No Blood Disorders: No Adverse Reaction/Blood Tranf: No Family Medical History Congenital heart disease Physical Exam Vital Signs Vital Signs - First Documented 07/15/22 00:29 Temp 36.5 Pulse 98 Resp 16 B/P (MAP) 138/88 (105) Pulse Ox 94 O2 Delivery Room Air Capillary Refill : Height, Weight, BMI Height: 5'6.00" Weight: 140lbs. 12.8oz. 63.083847fb; 21.9 BMI Method:Stated General Appearance: WD/WN, Mild Distress HEENT: PERRL/EOMI, TMs Normal (Negative for hemotympanum or valdovinos sign); No Pharynx Normal, No Moist Mucous Membranes; Other (Atraumatic head) Neck: Full Range of Motion, Normal Inspection Cardiovascular: Regular Rate, Rhythm, No Edema, Normal Peripheral Pulses Respiratory: Lungs Clear, Normal Breath Sounds, No Accessory Muscle Use, No Respiratory Distress Gastrointestinal: Normal Bowel Sounds, No Organomegaly Extremities: Normal Capillary Refill, Normal Inspection, No Pedal Edema Neurologic/Psychiatric: Alert, Oriented x3 Cranial Nerves: Normal Hearing, Normal Speech, PERRL (3 mm bilateral) Motor/Sensory: No Motor Deficit, No Sensory Deficit Skin: Normal Color, Warm/Dry Progress/Results/Core Measures Results/Orders Lab Results Laboratory Tests Test 07/15/22 00:34 07/15/22 00:47 07/15/22 01:39 Range/Units White Blood Count 7.7 4.3-11.0 10^3/uL Red Blood Count 4.77 4.30-5.52 10^6/uL Hemoglobin 14.2 13.3-17.7 g/dL Hematocrit 41 40-54 % Mean Corpuscular Volume 87 80-99 fL Mean Corpuscular Hemoglobin 30 25-34 pg Mean Corpuscular Hemoglobin Concent 34 32-36 g/dL Red Cell Distribution Width 12.1 10.0-14.5 % Platelet Count 344 130-400 10^3/uL Mean Platelet Volume 9.9 9.0-12.2 fL Immature Granulocyte % (Auto) 1 % Neutrophils (%) (Auto) 63 42-75 % Lymphocytes (%) (Auto) 28 12-44 % Monocytes (%) (Auto) 7 0-12 % Eosinophils (%) (Auto) 1 0-10 % Basophils (%) (Auto) 1 0-10 % Neutrophils # (Auto) 4.9 1.8-7.8 10^3/uL Lymphocytes # (Auto) 2.2 1.0-4.0 10^3/uL Monocytes # (Auto) 0.5 0.0-1.0 10^3/uL Eosinophils # (Auto) 0.1 0.0-0.3 10^3/uL Basophils # (Auto) 0.1 0.0-0.1 10^3/uL Immature Granulocyte # (Auto) 0.1 0.0-0.1 10^3/uL Sodium Level 144 135-145 MMOL/L Potassium Level 3.4 L 3.6-5.0 MMOL/L Chloride Level 104 98-107 MMOL/L Carbon Dioxide Level 23 21-32 MMOL/L Anion Gap 17 H 5-14 MMOL/L Blood Urea Nitrogen 5 L 7-18 MG/DL Creatinine 1.03 0.60-1.30 MG/DL Estimat Glomerular Filtration Rate 98 BUN/Creatinine Ratio 5 Glucose Level 138 H 70-105 MG/DL Calcium Level 9.3 8.5-10.1 MG/DL Corrected Calcium 9.0 8.5-10.1 MG/DL Total Bilirubin 0.2 0.1-1.0 MG/DL Aspartate Amino Transf (AST/SGOT) 17 5-34 U/L Alanine Aminotransferase (ALT/SGPT) 15 0-55 U/L Alkaline Phosphatase 75 40-136 U/L Total Protein 7.3 6.4-8.2 GM/DL Albumin 4.4 3.2-4.5 GM/DL Serum Alcohol 105 H <10 MG/DL Blood Gas Puncture Site RT RAD Blood Gas Patient Temperature 36.0 Arterial Blood pH 7.45 H 7.37-7.43 Arterial Blood Partial Pressure CO2 34 L 35-45 MMHG Arterial Blood Partial Pressure O2 105 H 79-93 MMHG Arterial Blood HCO3 24 23-27 MMOL/L Arterial Blood Total CO2 24.6 21.0-31.0 MMOL/L Arterial Blood Oxygen Saturation 99 94-100 % Arterial Blood Base Excess -0.2 -2.5-2.5 MMOL/L Andrew Test YES-POS Blood Gas Ventilator Setting NO Blood Gas Inspired Oxygen 2L Urine Color YELLOW Urine Clarity CLEAR Urine pH 6.0 5-9 Urine Specific Wyatt 1.015 L 1.016-1.022 Urine Protein NEGATIVE NEGATIVE Urine Glucose (UA) NEGATIVE NEGATIVE Urine Ketones NEGATIVE NEGATIVE Urine Nitrite NEGATIVE NEGATIVE Urine Bilirubin NEGATIVE NEGATIVE Urine Urobilinogen 0.2 < = 1.0 MG/DL Urine Leukocyte Esterase NEGATIVE NEGATIVE Urine RBC (Auto) NEGATIVE NEGATIVE Urine RBC NONE /HPF Urine WBC NONE /HPF Urine Crystals NONE /LPF Urine Bacteria NEGATIVE /HPF Urine Casts NONE /LPF Urine Mucus SMALL H /LPF Urine Culture Indicated NO Urine Opiates Screen NEGATIVE NEGATIVE Urine Oxycodone Screen NEGATIVE NEGATIVE Urine Methadone Screen NEGATIVE NEGATIVE Urine Propoxyphene Screen NEGATIVE NEGATIVE Urine Barbiturates Screen NEGATIVE NEGATIVE Ur Tricyclic Antidepressants Screen NEGATIVE NEGATIVE Urine Phencyclidine Screen NEGATIVE NEGATIVE Urine Amphetamines Screen NEGATIVE NEGATIVE Urine Methamphetamines Screen NEGATIVE NEGATIVE Urine Benzodiazepines Screen NEGATIVE NEGATIVE Urine Cocaine Screen NEGATIVE NEGATIVE Urine Cannabinoids Screen POSITIVE H NEGATIVE My Orders Orders - JESE RAMIREZ Ed Iv/Invasive Line Start (07/15/22 00:36) Lactated Ringers (Lr 1000 Ml Iv Solution (07/15/22 00:45) Ondansetron Injection (Zofran Injectio (07/15/22 00:45) Cbc With Automated Diff (07/15/22 00:36) Comprehensive Metabolic Panel (07/15/22 00:36) Continuous Ekg Monitoring (07/15/22 00:36) Ekg Tracing (07/15/22 00:36) Alcohol (07/15/22 00:36) Drug Screen Stat (Urine) (07/15/22 00:36) Ua Culture If Indicated (07/15/22 00:36) Chest 1 View, Ap/Pa Only (07/15/22 00:43) Arterial Blood Gas (07/15/22 00:46) Rx-Ondansetron Po (Rx-Zofran Po) (07/15/22 02:19) Medications Given in ED Vital Signs/I&O 07/15/22 07/15/22 00:29 02:23 Temp 36.5 36.0 Pulse 98 75 Resp 16 16 B/P (MAP) 138/88 (105) 93/59 Pulse Ox 94 97 O2 Delivery Room Air Room Air Progress Progress Note #1: Time: 00:43 Progress Note The patient denies any trauma. Suspect he has alcohol intoxication. He is little hypoxic so we will put him on some oxygen and get an ABG. Chest x-ray EKG labs urinalysis and drug screen. A liter of fluids and Zofran. Progress Note #2: Time: 01:02 Progress Note ABG reveals respiratory alkalosis without any evidence of hypoxemia. Panic attack or severe pain can cause this. The patient's not endorsing any pain. Progress Note #3: Time: 02:20 Progress Note Patient states he is feeling a little better. Has had no more retching or nausea since receiving ondansetron. Said he was drinking some alcohol eating some candy. We will send him home with a course of ondansetron. Return preca utions were gone over. Questions were answered. Initial ECG Impression Date: Jul 15, 2022 Initial ECG Impression Time: 00:45 Initial ECG Rate: 74 Initial ECG Rhythm: Normal Sinus Initial ECG Intervals: Normal Initial ECG Impression: Normal Comment Normal sinus rhythm without clinically relevant ST elevation or depression. Diagnostic Imaging Diagonstic Imaging: Xray Plain Films/CT/US/NM/MRI: chest Comments No acute cardiopulmonary process on 1 view chest x-ray. [facility] [place], [place] NAME: JALEESA CUEVAS III [facility] REC#: [id number] PT STATUS: DEP ER : 1990 PHYSICIAN: JESE RAMIREZ MD ADMIT DATE: 07/15/22/ER Signed Date of Exam:07/15/22 CHEST 1 VIEW, AP/PA ONLY INDICATION: Shortness of breath. Comparison is made with prior examination of 10/30/2018. FINDINGS: The heart size, mediastinal configuration, and pulmonary vascularity are within normal limits. There is no pleural effusion, pneumothorax, or pneumonia. The osseous structures are unremarkable. IMPRESSION: No acute cardiopulmonary abnormality. Dictated by: Dictated on workstation # [id number] Dict: 07/15/2210 Trans: 09/619 [facility] [id number] Interpreted by: JANNET ARMSTRONG MD Electronically signed by: JANNET ARMSTRONG MD 07/15/22619 Reviewed: Reviewed by Me Departure Impression Primary Impression: Nausea and vomiting Qualified Codes: R11.2 - Nausea with vomiting, unspecified Additional Impression: Syncope Qualified Codes: R55 - Syncope and collapse Disposition: 01 HOME, SELF-CARE Condition: Stable Departure-Patient Inst. Decision time for Depature: 02:20 Referrals: NO,LOCAL PHYSICIAN (PCP/Family) Primary Care Physician Patient Instructions: Syncope (Fainting), Nausea and Vomiting, Adult Add. Discharge Instructions: Drink plenty of fluids. Ondansetron 1 or 2 tablets every 6 hours as needed for nausea and/or vomiting. Place the tablet under your tongue and allow to absorb your mouth. Return to the ER for intractable vomiting. All discharge instructions reviewed with patient and/or family. Voiced understanding. Scripts Ondansetron (Ondansetron Odt) 4 Mg Tab.rapdis 4 MG PO Q6H PRN for NAUSEA/VOMITING, #8 TAB 0 Refills Prov: JESE RAMIREZ 07/15/22 JESE RAMIREZ Jul 15, 2022 00:43
[2022-07-15] MEDS ORDERED: ONDANSETRON 4 MG/2 ML (SDV) Z0FRAN IVP ONE (00:45)
[2022-07-15] MEDS ORDERED: LACTATED RINGERS 1,000 ML IV ONE (00:45)
[2022-07-15 00:49] LABS: BASOPHILS # (AUTO) 0.1 10^3/uL (0.0-0.1); BASOPHILS % (AUTO) 1 % (0-10); EOSINOPHILS # (AUTO) 0.1 10^3/uL (0.0-0.3); EOSINOPHILS % (AUTO) 1 % (0-10); HEMATOCRIT 41 % (40-54); HEMOGLOBIN 14.2 g/dL (13.3-17.7); LYMPHOCYTES # (AUTO) 2.2 10^3/uL (1.0-4.0); LYMPHOCYTES % (AUTO) 28 % (12-44); MEAN CORPUSCULAR HEMOGLOBIN 30 pg (25-34); MEAN CORPUSCULAR HGB CONC 34 g/dL (32-36); MEAN CORPUSCULAR VOLUME 87 fL (80-99); MEAN PLATELET VOLUME 9.9 fL (9.0-12.2); MONOCYTES # (AUTO) 0.5 10^3/uL (0.0-1.0); MONOCYTES % (AUTO) 7 % (0-12); NEUTROPHILS # (AUTO) 4.9 10^3/uL (1.8-7.8); NEUTROPHILS % (AUTO) 63 % (42-75); PLATELET COUNT 344 10^3/uL (130-400); WHITE BLOOD COUNT 7.7 10^3/uL (4.3-11.0)
[2022-07-15 00:54] LABS: ABG BASE EXCESS -0.2 MMOL/L (-2.5-2.5); ABG OXYGEN SATURATION 99 % (94-100); ABG PCO2 34 MMHG (35-45); ABG PH 7.45 (7.37-7.43); ABG PO2 105 MMHG (79-93); ABG TCO2 24.6 MMOL/L (21.0-31.0)
[2022-07-15 00:57] LABS: ALLENS TEST YES-POS; INSPIRED O2 2L; VENTILATOR NO
[2022-07-15 00:57] LABS: ALBUMIN 4.4 GM/DL (3.2-4.5); POTASSIUM 3.4 MMOL/L (3.6-5.0)
[2022-07-15 00:58] LABS: CALCIUM 9.3 MG/DL (8.5-10.1)
[2022-07-15 00:59] LABS: TOTAL PROTEIN 7.3 GM/DL (6.4-8.2)
[2022-07-15 01:01] LABS: BILIRUBIN,TOTAL 0.2 MG/DL (0.1-1.0)
[2022-07-15 01:03] LABS: CREATININE SERUM 1.03 MG/DL (0.60-1.30)
[2022-07-15 01:46] LABS: BILIRUBIN,URINE NEGATIVE (NEGATIVE); CLARITY,URINE CLEAR; COLOR,URINE YELLOW; GLUCOSE, URINE (UA) NEGATIVE (NEGATIVE); KETONES,URINE NEGATIVE (NEGATIVE); LEUKOCYTE ESTERASE ,URINE NEGATIVE (NEGATIVE); NITRITE,URINE NEGATIVE (NEGATIVE); PROTEIN,URINE NEGATIVE (NEGATIVE)
[2022-07-15 01:51] LABS: BACTERIA,URINE NEGATIVE /HPF
[2022-07-15 02:07] LABS: AMPHETAMINE SCREEN, URINE NEGATIVE (NEGATIVE); BARBITURATE SCREEN URINE NEGATIVE (NEGATIVE); BENZODIAZEPINES SCREEN URINE NEGATIVE (NEGATIVE); CANNABINOID SCREEN, URINE POSITIVE (NEGATIVE); COCAINE SCREEN URINE NEGATIVE (NEGATIVE); METHADONE STAT NEGATIVE (NEGATIVE); OPIATE SCREEN URINE NEGATIVE (NEGATIVE); OXYCODONE STAT NEGATIVE (NEGATIVE); PROPOXYPHENE STAT NEGATIVE (NEGATIVE); TRICYCLIC ANTIDEPRESSANTS SCRE NEGATIVE (NEGATIVE)
[2022-07-15] MEDS ORDERED: RX-ONDANSETRON 4 MG ODT (ZOFRAN) PPK #4 PO STA (02:19)
[2022-07-15] MEDS ORDERED: ONDA4TAB11 PO (02:22)
[2022-07-15 02:23] VITALS: BP 93/59
--- NOTE | 2022-07-15 06:12 | Diagnostic Imaging Report ---
INDICATION: Shortness of breath. Comparison is made with prior examination of 10/30/2018. FINDINGS: The heart size, mediastinal configuration, and pulmonary vascularity are within normal limits. There is no pleural effusion, pneumothorax, or pneumonia. The osseous structures are unremarkable. IMPRESSION: No acute cardiopulmonary abnormality. Dictated by: Dictated on workstation # [id number]
== END 2022-07-15 02:26 | disposition home or self-care (01) ==
LOC: EDUNIT# 00:28 → ER 00:32
DX: R11.2 Nausea with vomiting, unspecified (principal); R55 Syncope and collapse; Z28.310 Unvaccinated for COVID-19
CPT/HCPCS: 71045; 80053; 80306; 81000; 82805; 85025; 99285; G0480; 36415; 80320; 93005